=== PATIENT | female | born 1935 | race Two or more races ===

== ENCOUNTER 2021-09-12 11:47 | Emergency (ER) | payer OTHER ==
[~2021-09-12] VITALS: Ht 162.6 cm; Wt 54.4 kg
[2021-09-12] MEDS ORDERED: ACETAMINOPHEN 325 MG TAB PO ONE (20:00)
[2021-09-12 21:09] LABS: Basophils # (auto) 0 10 ^3/uL (0-0.2); Basophils % (auto) 0.4 % (0.0-2.0); Eosinophils # (auto) 0 10 ^3/uL (0-0.8); Eosinophils % (auto) 0.5 % (0.0-7.0); Hematocrit 40.7 % (36.0-46.0); Hemoglobin 13.8 g/dL (12.2-16.2); Lymphocytes # (auto) 1.3 10 ^3/uL (0.4-5.4); Lymphocytes % (auto) 12.5 % (10.0-50.0); Mean Corpuscular Hemoglobin 33.7 pg (28.0-32.0); Mean Corpuscular Hgb Conc. 33.9 g/dL (32.0-36.0); Mean Corpuscular Volume 99.6 fL (80.0-100.0); Monocytes % (auto) 9.4 % (0.0-12.0); Neutrophils # (auto) 7.9 10 ^3/uL (1.6-8.6); Neutrophils % (auto) 77.2 % (37.0-80.0); Red Blood Cells 4.09 10^6/uL (4.0-5.20); Red Cell Distribution Width 13.7 % (11.8-14.3); White Blood Cell 10.2 10^3/uL (4.4-10.8)
[2021-09-12 21:25] LABS: INR 0.99 (0.9-1.15); Partial Thromboplastin Time 23.3 sec (23.6-33.0)
[2021-09-12 21:30] LABS: Albumin 3.6 g/dL (3.4-5.0); Calcium 9.1 mg/dL (8.5-10.1); Potassium 3.8 mmol/L (3.5-5.1)
[2021-09-12 21:37] LABS: BUN/Creatinine Ratio 22.5; Bilirubin, Total 0.3 mg/dL (0.2-1.0)
[2021-09-12 22:17] VITALS: BP 131/55
== END 2021-09-12 22:17 | disposition home or self-care (01) ==
LOC: EDBD 11:47 → ER 11:47
DX: S01.01XA Laceration without foreign body of scalp, initial encounter (principal); E78.5 Hyperlipidemia, unspecified; M25.511 Pain in right shoulder; R94.31 Abnormal electrocardiogram [ECG] [EKG]; W18.39XA Other fall on same level, initial encounter; Y93.89 Activity, other specified; Y92.89 Other specified places as the place of occurrence of the external cause; Y99.8 Other external cause status
CPT/HCPCS: 36415; 70450; 71045; 72125; 73030; 80053; 84484; 85025; 85610; 85730; 86850; 86900; 86901; 93005

== ENCOUNTER → 2023-06-20 | Outpatient (CLI) | payer OTHER ==
[2023-06-20 12:42] LABS: Urine Bacteria FEW /hpf (None Seen); Urine Blood Negative /uL (Negative); Urine Clarity Clear (Clear); Urine Color Colorless (Yellow); Urine Protein, UAD Negative (Negative); Urine Specific Gravity 1.011 (1.001-1.035); Urine Urobilinogen Normal (Negative); Urine WBC 3 /hpf (0 - 5)
[2023-06-20 12:53] LABS: Chloride 106 mmol/L (98-107); Potassium 4.1 mmol/L (3.5-5.1); Sodium 140 mmol/L (136-145)
[2023-06-20 12:54] LABS: Anion Gap 5 (5-15); Calcium 9.4 mg/dL (8.5-10.1); Carbon Dioxide 29 mmol/L (20-30)
[2023-06-20 12:59] LABS: BUN/Creatinine Ratio 12.6 (10.0-20.0); Blood Urea Nitrogen 11 mg/dL (9-23); Glucose 97 mg/dL (74-106); Triglycerides 82 mg/dL (< 150)
[2023-06-20 13:00] LABS: LDL Cholesterol 98 mg/dL (< 100)
[2023-06-20 13:01] LABS: Cholesterol 183 mg/dL (< 200); HDL Cholesterol 68 mg/dL (40-59)
== END | disposition home or self-care (01) ==
LOC: LAB 12:17
PROVIDERS: ATTEND Family Medicine
DX: I70.0 Atherosclerosis of aorta (principal); I10 Essential (primary) hypertension; E78.5 Hyperlipidemia, unspecified; F03.90 Unspecified dementia, unspecified severity, without behavioral disturbance, psychotic disturbance, mood disturbance, and anxiety; R82.994 Hypercalciuria
CPT/HCPCS: 36415; 80048; 80061; 81001; 87086

== ENCOUNTER 2023-08-03 15:27 | Inpatient (IN) | payer OTHER, MEDICAID ==
[~2023-08-03] VITALS: Ht 154.9 cm; Wt 50.8 kg
[2023-08-03 23:48] VITALS: BP 123/63; PULSE 85; RESP 17; RESP 19; TEMP 98; O2SAT 97
[2023-08-04] MEDS ORDERED: ATOR20TA50 PO (00:15)
[2023-08-04] MEDS ORDERED: LATA0.008 EACHEYE (00:15)
[2023-08-04] MEDS ORDERED: MEMA1TAB5 PO (00:15)
[2023-08-04] MEDS ORDERED: DENO60SO SC (00:15)
[2023-08-04] MEDS ORDERED: METO25TA5 PO (00:15)
[2023-08-04] MEDS ORDERED: AMLO1TAB22 PO (00:15)
[2023-08-04] MEDS ORDERED: CHLO1TAB37 PO (00:15)
[2023-08-04] MEDS ORDERED: MELA5TAB10 PO (00:15)
[2023-08-04] MEDS ORDERED: ONDANSETRON HCL 4 MG/2 ML VIAL IV PRN (00:45)
[2023-08-04] MEDS ORDERED: hydrALAZINE HCL 20 MG/ML VL IV PRN (00:45)
[2023-08-04] MEDS ORDERED: MORPHINE SULFATE INJ 2 MG/ml SYRG IV PRN (00:45)
[2023-08-04] MEDS ORDERED: NITROGLYCERIN 0.4 MG SL TAB SL PRN (00:45)
[2023-08-04 02:43] LABS: Basophils # (auto) 0 10 ^3/uL (0-0.2); Basophils % (auto) 0.4 % (0.0-2.0); Eosinophils # (auto) 0 10 ^3/uL (0-0.8); Eosinophils % (auto) 0.4 % (0.0-7.0); Hematocrit 41.8 % (36.0-46.0); Hemoglobin 14.3 g/dL (12.2-16.2); Lymphocytes # (auto) 1.3 10 ^3/uL (0.4-5.4); Lymphocytes % (auto) 14.2 % (10.0-50.0); Mean Corpuscular Hemoglobin 34.2 pg (28.0-32.0); Mean Corpuscular Hgb Conc. 34.2 g/dL (32.0-36.0); Mean Corpuscular Volume 100.1 fL (80.0-100.0); Monocytes # (auto) 0.9 10 ^3/uL (0-1.3); Neutrophils # (auto) 7.1 10 ^3/uL (1.6-8.6); Nucleated Red Blood Cells % 0.1 %; Red Blood Cells 4.17 10^6/uL (4.0-5.20); Red Cell Distribution Width 13.3 % (11.8-14.3); White Blood Cell 9.5 10^3/uL (4.4-10.8)
[2023-08-04 03:01] LABS: Alanine Aminotransferase 13 U/L (7-40); Albumin 4.2 g/dL (3.2-4.8); Alkaline Phosphatase 84 U/L (46-116); Anion Gap 8 (5-15); Aspartate Aminotransferase 22 U/L (13-40); BUN/Creatinine Ratio 15.5 (10.0-20.0); Blood Urea Nitrogen 11 mg/dL (9-23); Calcium 8.7 mg/dL (8.7-10.4); Carbon Dioxide 25 mmol/L (20-30); Chloride 105 mmol/L (98-107); Glucose 96 mg/dL (74-106); Potassium 3.9 mmol/L (3.5-5.1); Sodium 138 mmol/L (136-145)
[2023-08-04 03:02] LABS: Bilirubin, Total 0.6 mg/dL (0.2-1.0); Total Protein 7.3 g/dL (5.7-8.2)
[2023-08-04 05:00] VITALS: BP 117/62; PULSE 79; RESP 17; TEMP 98.4; O2SAT 96
[2023-08-04] MEDS: D5W/SOD CHLO 0.9% 1,000 ML IV SCH ×2 (05:02→15:36)
[2023-08-04 08:00] VITALS: BP 124/61; PULSE 81; PULSE 82; RESP 16; TEMP 98.3; O2SAT 96
[2023-08-04] MEDS ORDERED: IOHEXOL 350 MG/ML 100ML IJ ONE (08:51)
[2023-08-04 09:00] VITALS: BP 124/61; PULSE 82; RESP 16; TEMP 98.3; O2SAT 96
[2023-08-04] MEDS ORDERED: ASPirin 81 mg TAB PO SCH (15:00)
[2023-08-04] MEDS ORDERED: ASPI-325 PO (16:01)
[2023-08-04] MEDS ORDERED: CEFTRIAXONE SODIUM 2 GM in D5W 5% 100 ML IV ONE (16:45)
[2023-08-04 17:48] LABS: Urine Bacteria NONE SEEN /hpf (None Seen); Urine Blood Negative /uL (Negative); Urine Clarity Clear (Clear); Urine Color Yellow (Yellow); Urine Mucus FEW (None Seen); Urine Protein, UAD 1+ (Negative); Urine Urobilinogen Normal (Negative); Urine WBC 1 /hpf (0 - 5)
[2023-08-04 17:52] LABS: Urine Specific Gravity > 1.050 (1.001-1.035)
[2023-08-04 18:04] VITALS: BP 124/61; PULSE 82; RESP 16; TEMP 98.3; O2SAT 96
[2023-08-04] MEDS ORDERED: ATORVASTATIN 20 MG TAB PO SCH (22:00)
== END 2023-08-04 19:00 | disposition hospice, home (50) | DRG 69 ==
LOC: UNDOADMIN 22:53 → TELE-CENTR 22:53
PROVIDERS: ADMIT Internal Medicine; ATTEND Internal Medicine
DX: G45.9 Transient cerebral ischemic attack, unspecified (principal); I24.89 Other forms of acute ischemic heart disease; N39.0 Urinary tract infection, site not specified; E78.5 Hyperlipidemia, unspecified; F03.90 Unspecified dementia, unspecified severity, without behavioral disturbance, psychotic disturbance, mood disturbance, and anxiety; I10 Essential (primary) hypertension; Z66 Do not resuscitate; R29.810 Facial weakness; R79.89 Other specified abnormal findings of blood chemistry; R62.7 Adult failure to thrive; Z68.21 Body mass index [BMI] 21.0-21.9, adult; Z51.5 Encounter for palliative care
CPT/HCPCS: 36415; 70450; 70496; 80053; 81001; 84484; 85025; 92610; G0378; J0696; J7060